=== PATIENT | male | born 1955 | race Caucasian/White ===

== ENCOUNTER 2017-11-19 19:05 | Emergency (ER) | payer OTHER ==
[2017-11-19 19:11] VITALS: BP 152/85; PULSE 83; TEMP 97.6; BMI 31.7
--- NOTE | 2017-11-19 21:15 | PDOC ---
Attending Attestation - HPI HPI: 11/19/17 22:18 The patient is a 62 year old male with significant past medical history of ulcerative colitis (on immune suppressive therapy), left inguinal hernia, known left kidney stone (which was found incidentally on CT), and HLD (on a statin) who presents to the ED with complaint of left lower abdominal pain and left flank pain since this afternoon. He states the pain fluctuates in intensity from 7/10 to 9/10. He states the pain was sudden and sharp at 3pm today with associated chills and nausea, but no vomiting. He denies taking any medications for the pain and reports pain resolution after a couple of hours. He states the pain worsened later in the evening and presented with associated hematuria and dysuria. The patient denies chest pain, shortness of breath, headache and dizziness. The patient denies fever, vomit, diarrhea and constipation. The patient denies frequency, urgency. Allergies: NKDA - Medical Decision Making 11/19/17 22:18 Documentation prepared by Ramila Prince, acting as medical staff manager for Claudine Dutton MD <Ramila Prince - Last Filed: 11/19/17 22:18> - Resident Resident Name: JosephNani - ED Attending Attestation I have performed the following: I have examined & evaluated the patient, The case was reviewed & discussed with the resident, I agree w/resident's findings & plan, Exceptions are as noted - Physicial Exam PE: GENERAL: Awake, alert, and fully oriented, in no acute distress. Obese. HEAD: No signs of trauma EYES: PERRLA, EOMI, sclera anicteric, conjunctiva clear ENT: Auricles normal inspection, hearing grossly normal, nares patent, oropharynx clear without exudates. Moist mucosa NECK: Normal ROM, supple, no lymphadenopathy, JVD, or masses LUNGS: Breath sounds equal, clear to auscultation bilaterally. No wheezes, and no crackles HEART: Regular rate and rhythm, normal S1 and S2, no murmurs, rubs or gallops ABDOMEN: Soft, +LUQ and L mid-abdominal tenderness, normoactive bowel sounds. No guarding, no rebound. No masses EXTREMITIES: Normal range of motion, no edema. No clubbing or cyanosis. No cords, erythema, or tenderness NEUROLOGICAL: Cranial nerves II through XII grossly intact. Normal speech, normal gait SKIN: Warm, Dry, normal turgor, no rashes or lesions noted. - Medical Decision Making Pt with history of kidney stone presenting with dysuria, abrupt onset LUQ/L mid- abdominal pain with nausea. Will obtain CT to evaluate stone, UA to check for infection. <Claudine Dutton - Last Filed: 11/19/17 22:29>
[2017-11-19] MEDS ORDERED: ACETAMINOPHEN 1000 MG/100 ML VIAL (NON FORMULARY) IVPB ONE (21:23)
[2017-11-19] MEDS ORDERED: SODIUM CHLORIDE 0.9% 500 ML INFUS.BAG IV ONE (21:23)
--- NOTE | 2017-11-19 21:27 | PDOC ---
History of Present Illness - General Chief Complaint: Pain, Acute Stated Complaint: LEFT SIDE PAIN Time Seen by Provider: 11/19/17 20:46 History Source: Patient Exam Limitations: No Limitations - History of Present Illness Initial Comments: 11/19/17 21:00 This is a 62 YOM with h/o ulcerative colitis (on mesalamine and dicyclomine), left inguinal hernia, known left kidney stone (which was found incidentally on CT), and HLD (on a statin) who p/w LLQ and left lower flank pain which has been fluctuating up to 9/10 this afternoon. The onset was sudden at 3 pm today, feels sharp, and is associated with nausea and chills. He did not take any medications for the pain and after the first few hours, it seemed to resolved without intervention at that time. However while he was driving this evening the pain acutely worsened and he decided to come into the ED. On arrival to the ED, he had an episode of hematuria when he used the restroom, and also has had burning on urination today. He denies any measured fever (has not taken his temperature), back pain, neck pain, headache, lightheadedness, chest pain, SOB, pain radiation down the leg, testicular pain or swelling, penile pain or lesions or discharge, or any other symptoms. Past History - Past Medical History Allergies/Adverse Reactions: Allergies Allergy/AdvReac Type Severity Reaction Status Date / Time No Known Allergies Allergy Verified 11/19/17 19:11 COPD: No GI Disorders: Yes (uncerative colitis) Kidney Stones: Yes - Surgical History Cholecystectomy: Yes - Suicide/Smoking/Psychosocial Hx Smoking History: Never smoked Review of Systems - Review of Systems Able to Perform ROS?: Yes Comments:: 11/19/17 21:00 GEN: chills, no fever, generalized weakness, malaise, change in activity level, unintentional weight change, loss of appetite, or difficulty sleeping HEENT: no ear pain, congestion, sore throat, rhinorrhea, nosebleed, vision change, or eye pain CV: no chest pain, palpitations, syncope, or exercise intolerance RESP: no cough, wheezing, or SOB GI: no nausea, vomiting, diarrhea, constipation, black/bloody stool, abdominal pain, or appetite change : flank pain, dysuria, hematuria, frequency, incontinence, retention, pruritis , testicular pain or swelling, or discharge MSK: no weakness, joint swelling, joint pain, or muscle pain NEURO: no headaches, seizures, or head trauma PSYCH: no insomnia, behavior change, or substance use SKIN: no jaundice, rashes, cuts, bruises, scars, or lesions *Physical Exam - Vital Signs Last Vital Signs Temp Pulse Resp BP Pulse Ox 97.6 F 83 18 152/85 97 11/19/17 19:07 11/19/17 19:07 11/19/17 19:07 11/19/17 19:07 11/19/17 19:07 - Physical Exam Comments: 11/19/17 21:00 GENERAL: pleasant adult male, obese, nontoxic and well-appearing, nourished, A/ Ox4, no acute distress, speaking in full sentences, answers questions appropriately, appears comfortable HEENT: PERRLA, EOMI, moist mucous membranes, no cervical lymphadenopathy NECK: No midline ttp, no spinal stepoff or deformity, full ROM, supple CARDIOVASCULAR: Regular rate and rhythm, normal S1S2, no MGR, radial and DP pulses 2+ and symmetric LUNGS/RESPIRATORY: No respiratory distress, normal and symmetric chest movements during respirations, lungs CTA bilaterally, equal breath sounds, no cyanosis, no nail clubbing GI/ABDOMEN: Normal symmetric appearance, no rash, obese, normoactive bowel sounds, soft, mild tenderness to palpation LLQ and suprapubic regions, no midline pulsatile masses, no palpated organomegaly : No CVA tenderness, normal external appearance, no lesions BACK: No midline ttp or stepoff or deformity of thoracic or lumbar spine, no paraspinous tenderness EXTREMITIES: distal pulses 2+, warm and well-perfused, no LE edema SKIN: Warm and dry, no pallor, no jaundice, no bruising, no rash, no skin breakdown, no cuts, no lesions NEUROLOGICAL: GCS 15, CN II-XII grossly intact, ambulating with normal gait, moving all extremities, 5/5 strength proximally and distally, no facial droop, no decreased sensation ED Treatment Course - LABORATORY CBC & Chemistry Diagram: 11/19/17 21:40 11/19/17 21:40 Medical Decision Making - Medical Decision Making 11/19/17 21:26 Pt p/w severe intermittent LLQ and suprapubic pain, none currently, also with chills, nausea, hematuria, and dysuria today. He is on immune suppressive therapy for UC. Initial Vital Signs Temp Pulse Resp BP Pulse Ox 97.6 F 83 18 152/85 97 11/19/17 19:07 11/19/17 19:07 11/19/17 19:07 11/19/17 19:07 11/19/17 19:07 Exam: As noted in Physical Exam section. DDX IBNLT: renal colic, obstructive uropathy, UTI/pyelonephritis, rental artery aneurysm or dissection (ruben w/ hematuria and no stone visualized on imaging), ACS, AAA/AD, pneumothorax, PE, cholecystitis, cholangitis, pancreatitis, gastritis, PUD, colitis, ruptured diverticulosis, diverticulitis wwo abscess or perforation, appendicitis, hernia, SBO, malignancy, splenic infarction, mesenteric ischemia, bowel perforation, testicular torsion, epididymitis, orchitis, urethritis, musculoskeletal, constipation, etc. W/U ordered: CBCD CMP Mg Phos UA UCx GC/Chlamydia/Trich GUERA US Kidneys Ureters Bladder EKG TX ordered: IVF, Toradol Laboratory Tests 11/19/17 11/19/17 11/19/17 21:17 21:40 21:40 WBC 15.6 H RBC 4.98 Hgb 15.7 Hct 46.3 MCV 92.9 MCH 31.4 MCHC 33.8 RDW 13.6 Plt Count 238 MPV 9.2 Absolute Neuts (auto) 12.9 H Neutrophils % 83.2 H Lymphocytes % 11.3 Monocytes % 4.7 Eosinophils % 0.3 Basophils % 0.5 Nucleated RBC % 0 PT with INR 12.90 INR 1.09 Sodium Potassium Chloride Carbon Dioxide Anion Gap BUN Creatinine Creat Clearance w eGFR Random Glucose Calcium Total Bilirubin AST ALT Alkaline Phosphatase Total Protein Albumin Urine Color Yellow Urine Appearance Cloudy Urine pH 5.0 Ur Specific [place] 1.016 Urine Protein 1+ H Urine Glucose (UA) Negative Urine Ketones 1+ H Urine Blood 3+ H Urine Nitrite Negative Urine Bilirubin Negative Urine Urobilinogen Negative Ur Leukocyte Esterase Negative Urine WBC (Auto) 17 Urine RBC (Auto) 442 Urine Bacteria Rare Urine Mucus Rare 11/19/17 21:40 WBC RBC Hgb Hct MCV MCH MCHC RDW Plt Count MPV Absolute Neuts (auto) Neutrophils % Lymphocytes % Monocytes % Eosinophils % Basophils % Nucleated RBC % PT with INR INR Sodium 136 Potassium 4.2 Chloride 103 Carbon Dioxide 28 Anion Gap 5 L BUN 16 Creatinine 1.0 Creat Clearance w eGFR > 60 Random Glucose 97 Calcium 9.4 Total Bilirubin 0.7 AST 14 L ALT 32 Alkaline Phosphatase 77 Total Protein 8.8 H Albumin 4.4 Urine Color Urine Appearance Urine pH Ur Specific [place] Urine Protein Urine Glucose (UA) Urine Ketones Urine Blood Urine Nitrite Urine Bilirubin Urine Urobilinogen Ur Leukocyte Esterase Urine WBC (Auto) Urine RBC (Auto) Urine Bacteria Urine Mucus Spiral CT ordered. 11/20/17 00:01 Reassessment: Patient states pain resolved, wants to go home, has a friend waiting for him to drive him there. This patient has gotten significant relief of symptoms while in the ED. On last reassessment, vitals are wnl, pain is reasonably controlled, and exam is benign. Workup is not concerning for emergency-level pathology at this time. This patient is appropriate for discharge with close outpatient follow up. They are comfortable with this plan and will follow up with their primary care provider tomorrow. Referral information is given for Urology. The patient does not want pain medication sent by Rx. They are counseled to stay well-hydrated. Specific return precautions are discussed and they will come back to the ER if necessary. *DC/Admit/Observation/Transfer Diagnosis at time of Disposition: Ureteral stone - Discharge Dispostion Disposition: HOME Condition at time of disposition: Stable Decision to Admit order: No - Referrals Referrals: ON STAFF,NOT [Primary Care Provider] - Marcellus Dumont MD., [Staff Physician] - - Patient Instructions Printed Discharge Instructions: DI for Kidney Stones Additional Instructions: YOU WERE SEEN IN THE ER FOR A KIDNEY STONE THAT IS TRYING TO PASS. WE DID LABORATORY TESTS ON YOUR URINE AND FOUND BLOOD IN THE URINE, WHICH IS COMMON WITH KIDNEY STONES. WE DID NOT SEE SIGNS OF AN INFECTION ON YOUR LABORATORY TESTS, OR ON YOUR VITAL SIGNS. WE DID BLOOD WORK WELL, WHICH WAS NORMAL, AND A CT SCAN WHICH SHOWED THE STONE THAT IS LIKELY CAUSING THE PAIN, WELL A LARGE IRREGULARLY-SHAPED STONE IN THE LEFT KIDNEY. WE GAVE YOU MEDICATIONS AND IV FLUIDS WHICH HELPED YOUR SYMPTOMS. AFTER OUR ASSESSMENT, WE DO NOT BELIEVE YOU ARE HAVING A MEDICAL EMERGENCY AT THIS TIME, AND WE BELIEVE YOU ARE SAFE TO GO HOME. WE ARE GIVING YOU REFERRAL INFORMATION FOR A UROLOGIST IN CASE YOU NEED A NEW ONE (YOU SHOULD FOLLOW UP WITH ONE). PLEASE TAKE OVER THE COUNTER PAIN MEDICATIONS FOR PAIN, FOLLOWING THE INSTRUCTIONS ON THE MEDICATION LABEL. YOU CAN ALTERNATE TYLENOL AND MOTRIN. PLEASE FOLLOW UP WITH YOUR PRIMARY CARE PROVIDER TOMORROW TO DISCUSS THE RESULTS OF THE CT SCAN. CALL THEIR CLINIC [facility] , TELL THEM YOU WERE SEEN IN THE ER, AND TELL THEM YOU NEED AN APPOINTMENT. PLEASE COME BACK TO THE ER AT ANY TIME, 24 HOURS A DAY, FOR ANY NEW OR WORSENING SYMPTOMS, LIKE WORSENING PAIN UNRELIEVED WITH MEDICATIONS, FEVER, INABILITY TO URINATE, WORSENING BURNING ON URINATION, TESTICULAR PAIN OR SWELLING, OR OTHER SYMPTOMS. IF YOU ARE HAVING SEVERE OR LIFE THREATENING SYMPTOMS, OR SYMPTOMS THAT MAKE IT UNSAFE TO DRIVE OR HAVE SOMEONE DRIVE YOU, PLEASE CALL 911. - Post Discharge Activity
[2017-11-19 21:32] LABS: URINE APPEARANCE CLOUDY; URINE BILIRUBIN NEGATIVE (<2.0 mg/dL); URINE COLOR YELLOW; URINE GLUCOSE (UA) NEGATIVE (NEGATIVE); URINE KETONE 1+ (NEGATIVE); URINE LEUK ESTERASE NEGATIVE (NEGATIVE); URINE NITRITE NEGATIVE (NEGATIVE); URINE PROTEIN 1+ (NEGATIVE); URINE UROBILINOGEN NEGATIVE mg/dL (0.2-1.0)
[2017-11-19] MEDS ORDERED: ACETAMINOPHEN INJECTION 100 ML IVPB ONE (21:32)
[2017-11-19 21:39] LABS: URINE BACTERIA RARE /hpf (NONE SEEN); URINE MUCUS RARE
[2017-11-19 21:58] LABS: BASO % 0.5 % (0-2.0); EOS % 0.3 % (0-4.5); HEMATOCRIT 46.3 % (35.4-49); HEMOGLOBIN 15.7 GM/dL (11.7-16.9); LYMPH % 11.3 % (8-40); MCH 31.4 pg (25.7-33.7); MCHC 33.8 g/dl (32.0-35.9); MEAN CELL VOLUME 92.9 fl (80-96); MEAN PLT VOLUME 9.2 fl (7.5-11.1); MONO % 4.7 % (3.8-10.2); NEUT % 83.2 % (42.8-82.8); PLATELET COUNT 238 K/MM3 (134-434); RBC 4.98 M/mm3 (4.00-5.60); RDW 13.6 % (11.9-15.9); WHITE BLOOD COUNT 15.6 K/mm3 (4.0-10.0)
[2017-11-19 22:13] LABS: ALBUMIN 4.4 g/dl (3.4-5.0); ALK PHOS 77 U/L (45-117); ANION GAP 5 MMOL/L (8-16); BILIRUBIN,TOTAL 0.7 mg/dL (0.2-1); BLOOD UREA NITROGEN 16 mg/dL (7-18); CALCIUM 9.4 mg/dL (8.5-10.1); CHLORIDE 103 mmol/L (98-107); CO2 28 mmol/L (21-32); GLUCOSE,RANDOM 97 mg/dL (74-106); POTASSIUM 4.2 mmol/L (3.5-5.1); SGOT/AST 14 U/L (15-37); SGPT/ALT 32 U/L (13-61); SODIUM 136 mmol/L (136-145); TOT PROT 8.8 g/dl (6.4-8.2)
[2017-11-19 22:21] LABS: INR 1.09 (0.83-1.09); PROTHROMBIN TIME (PATIENT) 12.9 SEC (9.7-13.0)
[2017-11-19] MEDS ORDERED: KETOROLAC TROMETHAMINE 30 MG/1 ML VIAL IVPUSH ONE (23:54)
[2017-11-20] MEDS ORDERED: KETOROLAC TROMETHAMINE 30 MG/1 ML VIAL ONE (00:35)
== END 2017-11-20 00:40 | disposition home or self-care (01) ==
LOC: JER 19:05
PROC: 3E033NZ Introduction of Analgesics, Hypnotics, Sedatives into Peripheral Vein, Percutaneous Approach (ICD-10-PCS; principal; 2017-11-19)
PROC: 3E0333Z Introduction of Anti-inflammatory into Peripheral Vein, Percutaneous Approach (ICD-10-PCS; 2017-11-19)
DX: N20.2 Calculus of kidney with calculus of ureter (principal)
CPT/HCPCS: 36415; 74176; 80053; 81003; 81015; 85025; 85610; 87086; 99281-25; J0131